=== PATIENT | female | born 1980 ===

== ENCOUNTER 2025-05-11 08:35 | Emergency (ER) | payer SELFPAY ==
[~2025-05-11] VITALS: Ht 172.7 cm; Wt 104.0 kg
[2025-05-11 08:41] VITALS: O2SAT 100
[2025-05-11] MEDS: ACETAMINOPHEN 500MG TABLET PO ONE (09:17)
[2025-05-11 09:45] VITALS: BP 135/80; PULSE 72; RESP 16; TEMP 36.7; O2SAT 100
== END 2025-05-11 09:55 | disposition home or self-care (01) ==
LOC: ER 08:35
DX: R25.2 Cramp and spasm (principal); F41.9 Anxiety disorder, unspecified
CPT/HCPCS: 99282